=== PATIENT | male | born 1940 | race Hispanic/Latino ===

== ENCOUNTER 2017-09-26 23:16 | Emergency (ER) | payer MEDICARE, OTHER ==
[~2017-09-26] VITALS: Ht 185.4 cm; Wt 107.0 kg
[~2017-09-26 23:16] MED LIST: ASPIRIN EC81 MG PO; CELEBREX200 MG PO; DEPO-TESTO200 MG/1 M IM; FLUOXETINE HCL20 M1 PO; GABAPENTIN100 MG PO; GLIPIZIDE XL10 MG PO; METOPROLOL SUCC25 MG PO; MIRAPEX0.25 MG PO; OXYBUTYNIN CHLO15 MG PO; PRILOSEC20 MG PO; REQUIP2 MG PO
[2017-09-26] MEDS ORDERED: DITROPAN XL10 MG PO (23:36)
[2017-09-26] MEDS ORDERED: FINASTERIDE5 MG PO (23:36)
== END 2017-09-27 03:21 | disposition short-term general hospital (02) ==
LOC: ED 23:16
DX: S12.600A Unspecified displaced fracture of seventh cervical vertebra, initial encounter for closed fracture (principal); E11.9 Type 2 diabetes mellitus without complications; F03.90 Unspecified dementia, unspecified severity, without behavioral disturbance, psychotic disturbance, mood disturbance, and anxiety; Z87.891 Personal history of nicotine dependence; Z88.5 Allergy status to narcotic agent; Z79.899 Other long term (current) drug therapy; Z79.84 Long term (current) use of oral hypoglycemic drugs; W06.XXXA Fall from bed, initial encounter
CPT/HCPCS: 70450; 70486; 72125; 99284

== ENCOUNTER 2018-11-27 11:55 | Observation (INO) | payer MEDICARE, OTHER ==
[~2018-11-27] VITALS: Ht 185.4 cm; Wt 96.2 kg
[~2018-11-27 11:55] MED LIST changes: +DITROPAN XL10 MG PO; +FINASTERIDE5 MG PO; -REQUIP2 MG PO; +ROPINIROLE HCL2 MG PO
--- OUTSIDE RECORDS SUMMARY | 2018-11-27 11:58 | XMS ---
PreManage Notification: SAMUEL STARKEY [employer] Events No recent Security Events currently on file CRITERIA MET - [facility] - Has Care Guidelines CARE PROVIDERS Milton Guillen Primary Care Current PHONE: Unknown orbev Case or Practical Nurse Current PHONE: Unknown Frankie [place] Gregoria Current Orthopedic Surgery \T\ Fracture Clinic PHONE: Unknown Guidelines Source: [facility] Guidelines Date: 11/08/2017 Care Coordination: PATIENT IS UNDER SERVICES AT [facility].\T\nbsp; IF PATIENT IS SEEN IN THE ED, PLEASE NOTIFY THEM AT [phone].\T\nbsp; IF AFTER HOURS OR ON WEEKENDS PLEASE CALL SWITCHBOARD AT [phone] AND HAVE ON-CALL RN NOTIFIED. Mahamed VISIT COUNT (12 MO.) 1 VERÓNICA Haney TOTAL 1 NOTE: Visits indicate total known visits. ED/UCC VISIT TRACKING (12 MO.) 11/27/2018 11:55 VERÓNICA Locke OR TYPE: Emergency COMPLAINT: - WEAKNESS,CONFUSION INPATIENT VISIT TRACKING (12 MO.) No inpatient visits to display in this time frame [email or web address]
[2018-11-27] MEDS ORDERED: SEROQUEL25 MG PO (15:20)
--- NOTE | 2018-11-27 18:59 | NUR ---
NEW ADMIT TO THE FLOOR. PT TRANSITIONED TO UNIT BED WITH 4 PERSON ASSIST. PT ALERT TO SELF, EYES OPEN, RESP EVEN AND NON LABORED. PT HAS NO NOTABLE DISTRESS. VS STABLE AT THIS TIME. HOSPICE TRAY IN ROOM. REPORT TO BE GIVEN TO ONCOMING RN.
--- NOTE | 2018-11-27 20:36 | NUR ---
CALL LIGHT ANSWERED, PT VOMITTING, 50 CC GREEN EMESIS IN BAG AND ON CHUX. PRN NAUSEA MEDICATION ADMINISTERED IV. PT REPOSITIONED WITH TWO NURSING STAFF ASSIST. CHUX CHANGED. PT WINCING WITH TURNING, STATES "OUCH". PRIMARY RN MARIELA IN ROOM TO ADMINISTER PAIN MEDICATIONS. FAMILY IN ROOM.
--- NOTE | 2018-11-27 20:48 | NUR ---
MEDICATED WITH PHENERGAN 12.5MG IV PER EMESIS, TURNED IN BED, FAMILY IN ROOM, PROCEDURE EXP[LAINED TO PT AND FAMILY.
--- NOTE | 2018-11-27 22:21 | NUR ---
Family states that pt is restless and in pain, no facial distress noted, pt with involuntary tremors and stiffness of all extremitiies, garbled speech, awake, HOB elevated. Given Seroquel 12.5mg po, MS 10mg po. Family states pt level is a 10. Pt received Phenergan earlier for emesis, no further emesis noted, Pt repositioned in bed. Tolerating fluids well, aspiration and high fall precautions in place, bed alarm on. Pt on comfort care, family at bedside
--- NOTE | 2018-11-28 00:30 | NUR ---
PT INCONTINENT OF URINE, ATTENDS CHANGED, TURNED, VERY STIFF, REQUIERED SEVERAL CUES, CONFUSED. SEMI COOPERATIVE, GARBLED SPEECH,. BED ALARM ON, FAMILY IN ROOM. ASPIRATION AND FALL PRECAUTIONS IN PLACE
--- NOTE | 2018-11-28 05:27 | NUR ---
pt on comfort care, resting at this time, no resp distress, turned q2h, was incontinent of urine x2, attends changes, pt semi cooperative, very stiff le, received seroquesl po as per orders and was medicated with Morphine SL per pain, effective, no agitation noted. 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 Pt was unable to state allergies and family was not aware of pts past med hx/ allergies. ALl procedures explained unable to assess degree of understanding as he is confused. Ocassional word salad present. Tolerated fluids well, on aspiration and fall precautions. family at bedside
--- NOTE | 2018-11-28 07:01 | NUR ---
DR DESHPANDE NOTIFIED OF PTS RECEIVEING MORPHINE AND PT HAVING MORPHINE ALLERGY LISTED IN OLD RECORDS, NO ADVERSE SIDE EFFECTS NOTED, NO AGITATION NOTED. CALMED PT DOWN. NO NEW ORDERS
--- NOTE | 2018-11-28 07:20 | NUR ---
PT RESTING SUPINE IN BED, EYES CLOSED AND RESPIRATIONS EVEN AND UNLABORED AT 14. PT APPEARS TO BE SLEEPING COMFORTABLY. BEDSIDE REPORT RECEIVED FROM BORIS SIERRA. PT'S AT BEDSIDE, DENIES NEEDS OR CONCERNS.
--- NOTE | 2018-11-28 08:40 | NUR ---
PT RESTING SUPINE IN BED, APPEARS TO REMAIN DROWSY, OPENS EYES TO VOICE BUT THEN APPEARS TO EASILY FALL BACK TO SLEEP, RR16. ASSESSMENT COMPLETED. PT REPOSITIONED IN BED. PT APPEARS TO BE IN NO DISTRESS. CALL LIGHT AND H2O IN REACH. FAMILY AT BEDSIDE, NO NEEDS OR CONCERNS VOICED.
[2018-11-28] MEDS ORDERED: FAMOTIDINE40 MG PO (09:15)
[2018-11-28] MEDS ORDERED: ESCITALOPRAM OX20 MG PO (09:15)
[2018-11-28] MEDS ORDERED: CARBIDOPA-LEVO1 EACH PO (09:16)
[2018-11-28] MEDS ORDERED: CELECOXIB100 MG PO (09:17)
[2018-11-28] MEDS ORDERED: LEVOTHYROXINE25 MCG PO (09:17)
--- NOTE | 2018-11-28 10:11 | NUR ---
MED REC COMPLETE
--- NOTE | 2018-11-28 10:30 | NUR ---
SPOKE WITH PATIENTS AND TWO DAUGHTERS IN ROOM. PATIENT IN BED, QUIEST, BUT NOT RESPONDING TO CONVERSATIONS. FAMILY IS WISHING TO TAKE PATIENT HOME AND HAVE HOSPICE. DISCUSSED TWO POSIBLE CHOICES THEY STATE TO TRY [facility]. DISCUSED AT LENGTH THE HOSPICE PROGRAM. THEY ARE ABLE TO PROVIDE 24/7 CARE WITH FAMILY MEMBERS. MULTIPLE FAMILY LIVE WITHIN A BLOCK FROM THEIR HOME. DISCUSSED TRANSPORTATION HOME NEEDS, NON-EMERGENT EMS TRANSFER WILL BE NEEDED, THEY ARE GOOD WITH THIS STATING THEY CAN PAY FOR IT IF MEDICARE DOESN'T. ALL QUESTIONS ANSWERED. WILL CONTINUE TO FOLLOW.
--- NOTE | 2018-11-28 10:47 | NUR ---
PT ASSISTED IN REPOSITIONING TO RIGHT LATERAL SIDE IN BED PT APPEARS TO BE RESTING COMFORTABLY, NO GRIMMACING OR OTHER SIGNS OF DISCOMFORT NOTED. FAMILY AT BEDSIDE, NO NEEDS VOICED.
--- NOTE | 2018-11-28 11:29 | NUR ---
CALLED AND SPOKE WITH VENKATESH FROM [facility] [phone]. THEY WILL BE ABLE TO ADMIT TOMORROW AND REQUEST CLINICALS. DAUGHTER HUY PHONE NUMBER GIVEN IN CASE NO ONE ANSWERS HOUSE PHONE.
--- NOTE | 2018-11-28 12:45 | NUR ---
CLINICALS FAXED TO VENKATESH AT [facility] [phone]. COULD NOT GET FAX TO GO THROUGH AFTER MULTIPLE ATTEMPTS, CALLED BACK AND SHE STATES TO EMAIL TO [email or web address]. THIS WAS DONE. CALLED AND SPOKE WITH RITO FROM [facility] WHO STATES SHE RECEIVED AND HAND DELIVERED TO VENKATESH IN HOSPICE DEPARTMENT.
--- NOTE | 2018-11-28 12:45 | NUR ---
ASSISTED PT IN REPOSITIONING IN BED, PT APPEARS TO BE IN NO ACUTE DISTRESS, FAMILY AT BEDSIDE. NO NEEDS OR CONCERNS VOICED.
--- NOTE | 2018-11-28 13:00 | NUR ---
DISCUSSED WITH [facility] THAT PATIENT WILL REQUIRE NON-EMERGENT EMS TRANSFER HOME TOMORROW FOR HOSPICE ADMIT. SHE WILL CONTACT [facility] TOMORROW TO SET UP TIME AND HAVE NURSING DO PAPERWORK.
--- NOTE | 2018-11-28 13:30 | NUR ---
BROCHURE FOR HELPING HANDS IN-HOME CARE GIVEN TO DAUGHTER HUY. DISCUSSED THAT HOSPICE DEPARTMENT WILL BE CALLING HER CELL REQUESTING SOON TO SET UP EQUIPMENT AND ADMIT SCHEDULE. SHE STATES UNDERSTANDING. MANY FAMILY MEMBERS IN ROOM.
--- NOTE | 2018-11-28 14:38 | NUR ---
DR DESHPANDE REQUESTED I VISIT PT AND FAMILY. DECISION HAS BEEN MADE TO PLACE PT ON COMFORTCARE. RIGO AND DAUGHTER DAILY PRESENT. BOTH OPEN ABOUT THEIR FEELINGS, AND EXPRESSED A DESIRE TO DISCUSS FINAL ARRANGEMENTS. BOTH FELT THAT THE REST OF THE FAMILY SHOULD HELP IN DECISIONS. GAVE A BLESSING, AND COLLECTIVELY EXPRESS HOW GREAT DR AGUIRRE DID WITH THEM LAST NIGHT IN THE ED. WILL FOLLOW NEEDED
--- NOTE | 2018-11-28 14:45 | NUR ---
ASSISTED PT IN REPOSITIONING IN BED, PT APPEARS TO BE IN NO ACUTE DISTRESS, ATTENDS CHANGED. FAMILY AT BEDSIDE. NO NEEDS OR CONCERNS VOICED.
--- NOTE | 2018-11-28 15:22 | NUR ---
RECEIVED A CALL FROM [facility] WHO STATES THEY HAVE BEEN TRYING TO REACH HUY BY CELL, VERIFIED NUMBER AGAIN [phone]. I TOLD HER WE WILL SEE IF SHE IS STILL IN PATIENT ROOM AND ASK HER TO CALL THEM. SPOKE WITH NURSING STAFF WHO WILL CHECK IN PATIENTS ROOM AND GIVE MESSAGE TO DAUGHTER HUY.
--- NOTE | 2018-11-28 16:45 | NUR ---
ASSISTED PT IN REPOSITIONING IN BED, PT APPEARS TO BE IN NO ACUTE DISTRESS, ORAL CARE PROVIDED. FAMILY AT BEDSIDE. NO NEEDS OR CONCERNS VOICED.
--- NOTE | 2018-11-28 18:00 | NUR ---
ASSISTED PT IN REPOSITIONING IN BED, PT APPEARS TO BE IN NO ACUTE DISTRESS, FAMILY AT BEDSIDE. NO NEEDS OR CONCERNS VOICED.
--- NOTE | 2018-11-28 19:42 | NUR ---
PT AWAKE, MOVING LEGS, FAMILY STATES PT IS IN PAIN. FACIAL GRIMACING NOTED. MEDICATED WITH MORPHINE 20MG, RECEIVED REQUIP AND SEROQUEL IN PUDDING, SWALLED THEM AFTER SEVERAL CUES, NO COUGH. PT EXTREMITIES STIFF, TURNED TO R SIDE. TOLERATING SIPS OF FLUIDS WELL. HOB ELEVATED FOR ASPIRATION PRECAUTIONS. ATTENDS IN PLACE, DRY, BED ALARM ON, RAILS UP. ALL PROCEDURES EXPLAINED TO PT, NON VERBAL AT THIS TIME, OPENS EYES WHEN TALKED TO. BED ALARM ON. PT CONTINUES ON COMFORT CARE
--- NOTE | 2018-11-28 21:22 | NUR ---
CHARGE NURSE ROUNDING. pt RESTING PER "HE SEEMS COMFORTABLE." ASSISTED IN ADJUSTING CHAIR AND PROVIDED WARM BLANKETS. ADJUSTED LIGHTING FOR COMFORT. NO FURTHER REQUESTS, NO COMPLAINTS. CALL LIGHT WITHIN REACH. WHITEBOARD UPDATED.
--- NOTE | 2018-11-28 23:23 | NUR ---
Turned, appears comfortable, no distress, bed alarm on, legs elevated. family at bedside
--- NOTE | 2018-11-29 01:01 | NUR ---
Pt resting, no distress, continues on comfort care, room air, turned, tolerated well, no void, family at bedside. Bed alarm on
--- NOTE | 2018-11-29 03:40 | NUR ---
resting, eyes closed, no distress, on room air, family at bedside, bed alarm on.
--- NOTE | 2018-11-29 05:28 | NUR ---
Turned, incontinent of urine, attends changed, skin care done. Tolerated well, no c/o pain. tolerating sips of fluids this am, drowsy. Turned q2-3H. was medicated per facil distress earlier in shift, no further s/sx as per FLACC of pain. legs elevated, heel protectors in place. HOB elevated, aspiration precautions in place. NO cough after drinking. Family at bedside
--- NOTE | 2018-11-29 05:30 | NUR ---
Pt continues on Comfort care, gets turned Q2H, Incontinent of urine, skin care indone, intact, light perineum redness present. Stiffness of all extremities present. elevated, heel protectors in place. Rails up, bed alarm on. Non verbal. All procedures explained, family at bedside. Mouth care done
--- NOTE | 2018-11-29 07:00 | NUR ---
PT RESTING SUPINE IN BED, EYES CLOSED AND RESPIRATIONS EVEN AND UNLABORED. CALL LIGHT AND H2O IN REACH. FAMILY AT BEDSIDE. PT APPEARS TO BE SLEEPING COMFORTABLY. REPORT RECEIVED FROM BORIS SIERRA.
--- NOTE | 2018-11-29 09:51 | NUR ---
PT RESTING IN SEMI FOWLERS POSITION IN BED ALERT TO VOICE. AM MED ADMINISTERED CRUSHED IN PUDDING. HOSPICE ASSESSMENT COMPLETED. ORAL CARE PERFORMED AND PT ASSESSMENT COMPLETED. CALL LIGHT IN REACH. PT'S IS AT BEDSIDE AND POC AND PLANNED DISCHARGE DISCUSSED WITH HER, ALL QUESTIONS ANSWERED.
--- NOTE | 2018-11-29 10:09 | NUR ---
PT RESTING IN SEMIFOWLERS POSITION IN BED FACES SCALE 3/10 PAIN PT ABOUT TO BE TRANSFERED TO EMS [facility] FOR NONEMERGENT TRANSFER AND PER PT'S WIFES REQUEST PO MORPHINE ADMIMINISTERED SL FOR COMFORT. CALL LIGHT IN REACH.
--- NOTE | 2018-11-29 12:52 | NUR ---
PT TO BE DC'D SHORTLY AND WILL GO HOME ON HOSPICE. MET WITH FAMILY AND INFORMED THEM OF WHAT THEY CAN EXPECT ON HOSPICE. BOTH AND DAUGHTER ACKNOWLEDGE AND FEEL READY. EXTENDED A BLESSINGN WILL FOLLOW NEEDED
== END 2018-11-29 10:30 | disposition hospice, home (50) ==
LOC: ED 11:55 → MS 11:56
PROVIDERS: ADMIT Student in an Organized Health Care Education/Training Program
DX: Z51.5 Encounter for palliative care (principal); G93.41 Metabolic encephalopathy; E11.9 Type 2 diabetes mellitus without complications; G31.83 Neurocognitive disorder with Lewy bodies; F02.80 Dementia in other diseases classified elsewhere, unspecified severity, without behavioral disturbance, psychotic disturbance, mood disturbance, and anxiety; K76.89 Other specified diseases of liver; G25.81 Restless legs syndrome; R18.8 Other ascites; C64.9 Malignant neoplasm of unspecified kidney, except renal pelvis; Z88.5 Allergy status to narcotic agent; Z87.891 Personal history of nicotine dependence; Z79.84 Long term (current) use of oral hypoglycemic drugs; Z79.1 Long term (current) use of non-steroidal anti-inflammatories (NSAID); Z79.82 Long term (current) use of aspirin; Z79.899 Other long term (current) drug therapy
CPT/HCPCS: 51701; 51798; 70450; 71045; 74177; 80053; 81001; 85025; 96375; 96376; 99285-25; G0378; J2405; J2550; J7030; Q9967